=== PATIENT | male | born 1950 | race Caucasian/White ===

== ENCOUNTER 2017-02-28 13:47 | Observation (INO) | payer MEDICARE ==
--- NOTE | ~2017-02-28 | EKG ---
PATIENT: MAURA ADORNO UNIT #: [id number] Ventricular Rate: 64 BPM Atrial Rate: 64 BPM P-R Interval: 188 ms QRS Duration: 92 ms Q-T Interval: 418 ms QTC Calculation(Bezet): 431 ms P Chandler: 37 degrees Calculated R Chandler: 16 degrees Calculated T Chandler: 29 degrees Diagnosis Line: Normal sinus rhythm Diagnosis Line: Normal ECG Diagnosis Line: No previous ECGs available Diagnosis Line: Confirmed by BRYANT MACIAS MD ([id number]) on Diagnosis Line: 02/28/2017 10:23:46 PM INTERPRETING MD: SABINA
--- NOTE | ~2017-02-28 | OR ---
Unit #: [id number] #: [id number] Patient: MAURA ADORNO [id number] [address] [address] [id number] MR#: [id number] NAME: MAURA ADORNO ROOM: 562 Date of Procedure: 03/01/2017 Admission Date: 02/28/2017 Surgeon: Preet Earl M.D. : 1950 Attending Physician: Na Spence M.D. Primary Care Physician: Breanna Hartmann M.D. OPERATIVE REPORT PRIMARY CARE PHYSICIAN Breanna Hartmann M.D. PREOPERATIVE DIAGNOSES The patient has high-grade dysphagia to both solids as well as liquids for the past several days. He has lost about 20 pounds in the interim. PROCEDURES PERFORMED 1. Upper gastrointestinal endoscopy and foreign body disimpaction. 2. Upper gastrointestinal endoscopy and dilation. 3. Upper gastrointestinal endoscopy and biopsy. POSTOPERATIVE DIAGNOSES The patient had liquid food residue in the esophagus all the way up to the proximal esophagus. In the distal esophagus, a lot of solid food vegetative matter was present. The opening of the distal esophagus was like a pinhole marked with a tight stricture. The esophagus was quite dilated as a result of longstanding obstruction. After vigorous suction of the liquid contents, the distal esophagus was dilated using a 12 to 15 mm TTS balloon and the scope was then advanced into the gastric cavity. Stomach examination was normal. The patient did have evidence of mild duodenitis involving the duodenal bulb. A repeat dilation was done to dilate 12 to 15 mm. RECOMMENDATIONS The patient most likely has stricture in association with longstanding obstruction, overall currently may also have achalasia. We will see how he does with full liquid diet including shakes and protein supplements, and if he is able to maintain his weight, he will require a repeat dilation along with Botox injection in 4 to 6 weeks' time. This was communicated to his family. SEDATION USED MAC. DESCRIPTION OF PROCEDURE Following detailed explanation of the potential risks and complications of an upper endoscopy, namely perforation, bleeding, and complication related to sedation, the patient was brought to GI lab and laid in the left lateral decubitus position. Lubricated tip of the Olympus video upper endoscope was passed through the bite block into the proximal esophagus under direct vision. The entire esophageal mucosa was examined. The Unit #: [id number] #: [id number] Patient: MAURA ADORNO patient was noted to have lot of liquid residue in the entire esophagus all the way up to the proximal esophagus. This was suctioned. In the mid and distal esophagus, there was solid food residue present. The distal esophagus tapered to a narrow opening, which was impossible to pass with the shaft of the scope. This was negotiated with a TTS balloon to 12 mm, the scope could be advanced into the stomach. Mucosa of the fundus, body, and antrum was examined and appeared unremarkable. Pylorus was intubated with visualization of the duodenal bulb. The latter was noted to have focal patchy erosive duodenitis. Second and third part of duodenum were normal. Upon withdrawal and retroflexion, incisura, cardia, and greater curve was examined and a biopsy was obtained from the antrum for CLOtest. The scope was then withdrawn in the distal esophagus. The distal esophageal stricture was again dilated with 12 to 15 mm dilating balloon up to 15 mm. In addition, biopsies were obtained for histology from the strictured area. It is noteworthy the patient had considerably dilated esophagus indicating longstanding obstruction. Some of the solid food material was aspirated and some was passed through the esophagus into the stomach. The scope was then withdrawn all the way up to pharynx. No additional findings were noted. The patient tolerated the procedure without any postprocedure complications. Dictated by... James Ma/manuel TD: 03/01/2017 19:11 JOB #: [id number] Michelle May M.D. OPERATIVE REPORT Page 1 of 1 X Preet Earl MD X PROCEDURE OPERATIVE NOTE
--- NOTE | ~2017-02-28 | DS ---
Unit #: [id number] #: [id number] Patient: MAURA ADORNO [id number] [address] [address] [id number] I MR#: [id number] NAME: MAURA ADORNO ROOM: [facility] Age: 66 Sex: M Admission Date: 02/28/2017 : 1950 Discharge Date: 03/02/2017 Attending Physician: Na Spence M.D. Primary Care Physician: Breanna Hartmann M.D. DISCHARGE SUMMARY ADMISSION DIAGNOSIS Dysphagia. DISCHARGE DIAGNOSES 1. Dysphagia. 2. Distal esophageal stricture, status post dilatation. 3. Acute kidney injury, resolved. 4. Hypertension, controlled. 5. Hyperlipidemia. CONSULTANTS Dr. Preet Earl in GI consultation PROCEDURES PERFORMED The patient had an EGD done, which revealed distal esophageal stricture (1)____, which was evaluated. DIAGNOSTIC DATA LABORATORY: Creatinine 1.0, sodium 144, potassium 3.1. AST was 43, ALT was 63. White blood cell count 4.8, hemoglobin 13.9, platelet count 195. Urine culture did not reveal any growth. Blood culture did not reveal any growth. Troponin I was less than 0.03, 0.037. HOSPITAL COURSE The patient is a 66-year-old who was admitted to [facility] with dysphagia. Details are as per admission history and physical. The patient was seen by Dr. Preet Earl in consultation, who performed EGD which revealed esophageal stricture which was dilated. The patient was advised to have a liquid diet only and no solids until seen by Dr. Earl on an outpatient basis. Acute kidney injury, which responded well to IV fluids. The patient's creatinine is 1.0. Hypokalemia: Replaced the patient's potassium. The patient's urine culture is negative. DISCHARGE CONDITION Stable. ACTIVITY As tolerated. Unit #: [id number] #: [id number] Patient: MAURA ADORNO DISCHARGE MEDICATIONS 1. Lovastatin 40 mg p.o. daily. 2. Lisinopril 40 mg p.o. daily. 3. Protonix 40 mg p.o. daily. FOLLOWUP 1. The patient is advised to follow up with primary care physician in one week and have a CBC and CMP done for followup on potassium and LFTs. 2. The patient is advised to call primary care physician or go to the emergency room if his condition changes. 3. The patient is also advised to follow up with Dr. Preet Earl as recommended. The plan was discussed in detail with the patient and family and they showed complete understanding. Dictated by... James Nelson TD: 03/02/2017 11:07 JOB #: [id number] CC: James Ma M.D. DISCHARGE SUMMARY Page 1 of 1 X Na Spence MD X DISCHARGE SUMMARY
--- NOTE | ~2017-02-28 | CO ---
Unit #: [id number] #: [id number] Patient: MAURA LITTLEJOHN [id number] [address] [place], [place] [address] [id number] I MR#: [id number] NAME: MAURA LITTLEJOHN ROOM: 562 Age: 66 Sex: M Admission Date: 02/28/2017 : 1950 Attending Physician: Na Spence M.D. Primary Care Physician: Breanna Hartmann M.D. Consultation Date: 02/28/2017 CONSULTATION REPORT PRIMARY CARE PHYSICIAN Breanna Hartmann M.D. REASON FOR CONSULTATION Dysphagia to solids as well as liquids. HISTORY OF PRESENT ILLNESS Mr. Littlejohn is a very pleasant 66-year-old white gentleman. The patient was examined at the bedside. He had about 10 family members in the room at the time including his . For the past 3 to 4 days, he have total dysphagia to both solids as well as liquids and he says even if he takes a drink of water, it comes out. In fact, he is spitting a saliva indicated near total obstruction of the esophagus. The patient denies any history of postprandial retrosternal ascending heartburn preceding the symptoms. He stated that he had occasional dysphagia in the past, but not like this. In addition, he mentions almost 15 to 16 pounds of weight loss for the past 3 months, which is unintended. There is no history of overt GI bleed in the form of hematemesis, melena, or hematochezia. PAST MEDICAL HISTORY Significant for history of hypertension and hyperlipidemia, and he denies any abdominal surgeries. MEDICATIONS Include Zestril, Mevacor, and hydrochlorothiazide. The patient does not take any mybi-gst-[id number] NSAIDs. ALLERGIES The patient says if he takes ibuprofen, he gets swelling over his body and thus he is allergic to ibuprofen. SOCIAL HISTORY Works as a fork truck driver. Does not smoke. Drinks very occasionally. FAMILY HISTORY None of colon, pancreatic cancer, or liver disease. REVIEW OF SYSTEMS Detailed review of organ systems does not reveal any fever, chills, or rigors. There is history of weight loss mentioned above. There is history of cough and expectorations of mucoid material. No history of headache, seizures, chest pain, or syncope. No history of dysuria, hematuria, or pyuria. No history of focal seizures or extremity weakness. Rest of the review of organ systems is unremarkable. Unit #: [id number] #: [id number] Patient: MAURA LITTLEJOHN PHYSICAL EXAMINATION GENERAL: He is alert and oriented, and appears comfortable. VITAL SIGNS: Stable with a temperature of 98.4, pulse is 76 per minute and regular, respiratory rate is 18 per minute, and blood pressure is 146/80. HEENT: He has no pallor, icterus, lymphadenopathy, or peripheral edema. CARDIOVASCULAR: Reveals normal heart sounds. No murmurs on auscultation. LUNGS: Reveals normal breath sounds. Good air entry. ABDOMEN: Soft and nontender. Liver and spleen are not palpable. Bowel sounds normal. DIAGNOSTIC STUDIES LABORATORY RESULTS: Pending. CLINICAL IMPRESSION The patient with a new onset of dysphagia, significant weight loss. The differential diagnosis includes esophageal stricture, dysmotility, or esophageal malignancy. An upper endoscopy is indicated and be done tomorrow. The pros and cons of procedure, potential risks, and complications were discussed with the patient and he was reassured. Thank you very much for asking me to see this pleasant gentleman. I appreciate the consult. Dictated by... James Ma/manuel TD: 03/01/2017 02:31 JOB #: [id number] CC: James Mohan M.D. CONSULTATION REPORT Page 1 of 1 X Preet Earl MD X CONSULTATION REPORT
--- NOTE | ~2017-02-28 | HP ---
Unit #: [id number] #: [id number] Patient: MAURA ADORNO 828254 [facility] [address] [place], [place] [address] [id number] I MR#: [id number] NAME: MAURA ADORNO ROOM: 562 Age: 66 Sex: M Admission Date: 02/28/2017 : 1950 Attending Physician: Michelle May M.D. Primary Care Physician: Breanna Hartmann M.D. HISTORY AND PHYSICAL CHIEF COMPLAINT Vomiting. HISTORY OF PRESENT ILLNESS The patient is a 66-year-old male with past medical history of hypertension, hyperlipidemia, who presented to [facility] for evaluation of the above. The patient states that he has had about a year of intermittent difficulty swallowing. It has become acutely worse over the past 3 to 4 days. He states that he feels like both liquids and solids "get stuck" in his mid chest. He has actually had to carry a bottle with him in order to spit his own secretions. Otherwise, he has been vomiting. He states that he has lost at least 30 pounds over the past 6 months. He has never had endoscopy. In the emergency department, at [facility], a CT of the chest was done and showed moderate dilatation of the esophagus with air-fluid levels. Urinalysis showed findings concerning for urinary tract infection. Creatinine was 1.92. He was given a gram of Rocephin. He was transferred to [facility] for admission and further workup. PAST MEDICAL HISTORY 1. The patient denies any hospitalizations within the past 10 years. 2. Hypertension. 3. Hyperlipidemia. PAST SURGICAL HISTORY 1. Oral surgery. 2. 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 ALLERGIES 1. Ibuprofen. 2. Sulfamethoxazole. HOME MEDICATIONS 1. Hydrochlorothiazide 25 mg daily. 2. Lisinopril 40 mg daily. 3. Lovastatin 40 mg daily. SOCIAL HISTORY The patient lives with his . He drives a delivery truck. He denies tobacco use. He reports occasional alcohol use. Unit #: [id number] #: [id number] Patient: MAURA ADORNO FAMILY HISTORY Notable for his mother and father both having COPD. REVIEW OF SYSTEMS A complete review of systems is negative except as indicated in the HPI. PHYSICAL EXAMINATION VITAL SIGNS: Temperature 98, pulse 80, respirations 18, blood pressure 120/80, oxygen saturation 97% on room air. GENERAL: The patient is a very pleasant male who is awake and alert in no acute distress. HEENT: Head is atraumatic. Mucous membranes are moist. NECK: Supple. Trachea is midline. LUNGS: Clear to auscultation bilaterally with no increased work of breathing. HEART: Regular rate and rhythm. ABDOMEN: Soft, nontender. Bowel sounds present in all four quadrants. EXTREMITIES: Nontender with no pedal edema. NEUROLOGIC: Patient is awake and alert. He follows commands. PSYCHIATRIC: Mood and affect are normal. Patient is cooperative. SKIN OF EXAMINED AREAS: Warm and dry. DIAGNOSTIC STUDIES LABORATORY: Comprehensive metabolic panel notable for a sodium of 145, potassium 3.3, BUN 46, creatinine 1.92, total protein 8.9, total bilirubin 3, AST 76, ALT 83. Complete blood count is essentially normal. Urinalysis is nitrate positive with 30 protein, 100 glucose, trace ketones, 1+ bacteria, a few epithelial cells. IMAGING: CT of the chest showed esophageal dilatation with air-fluid levels. CARDIOVASCULAR: EKG. I was told was done and normal. I do not see that in the accompanying records. ASSESSMENT The patient is a 66-year-old male with: 1. Dysphagia for liquids and solids. This has been going on for about a year but worse over the past couple of days. The patient is currently having difficulty handling his secretions as he is having to spit into a bottle. He is not currently in any distress however. 2. Acute kidney injury. The patient's creatinine was 1.92 with no baseline for comparison. The patient is on lisinopril which could be contributing. 3. Urinary tract infection. The patient received Rocephin in the emergency department. 4. Hypertension. 5. Hyperlipidemia. 6. Weight loss. The patient has lost over 30 pounds in the past 6 months. PLAN 1. Admit for observation to intermediate level. 2. N.p.o. 3. Normal saline at 125 mL per hour. 4. Consult Dr. Earl regarding dysphagia. 5. Blood cultures x2. 6. Urine culture and sensitivity on urine in the lab. Unit #: [id number] #: [id number] Patient: MAURA ADORNO 7. Rocephin 1 gram IV daily. 8. EKG and cardiac enzymes. 9. Check TSH. 10. Check magnesium level. 11. Strict I's and O's. 12. P.r.n. Zofran. 13. Check CPK. 14. Hold nephrotoxic medications. 15. Repeat labs in the morning. 16. SCDs for DVT prophylaxis. 17. Additional workup and consultants based on above. Dictated by James Mohan/chandan TD: 02/28/2017 17:54 JOB #: [id number] HISTORY AND PHYSICAL Page 1 of 1 X Michelle May MD X HISTORY AND PHYSICAL
[2017-02-28] MEDS ORDERED: LISINOPRIL PO (15:02)
[2017-02-28] MEDS ORDERED: MEVACOR PO (15:03)
[2017-02-28] MEDS ORDERED: HYDROCHLOROTHIA25 MG PO (15:04)
[2017-02-28 18:23] LABS: CALCIUM SERUM 8.8 mg/dL (8.4-10.2); CREATININE SERUM 1.5 mg/dL (0.6-1.4); GLOM FILT RATE Estimated 48.2 mL/min (>60); MAGNESIUM 2.1 mg/dL (1.6-3.0); POTASSIUM 3.7 mmol/L (3.5-5.1)
[2017-02-28 18:42] LABS: %MB 2.6 % (0.0-4.0); MB 2.2 ng/ml
[2017-03-01 00:33] LABS: %MB 2.7 % (0.0-4.0); MB 2.4 ng/ml
[2017-03-01 07:44] LABS: HEMATOCRIT 42.2 % (38.0-50.0); MEAN CELL VOLUME 88.8 FL (83-96); MEAN CORPUSCULAR HEMOGLOBIN 29.4 PG (28-34); MEAN CORPUSCULAR HGB CONC 33.1 g/dL (30-36); MEAN PLATELET VOLUME 8.6 FL (6.5-11.5); RED BLOOD COUNT 4.75 X10e (3.90-5.60); RED CELL DISTRIBUTION WIDTH 14.1 % (11.0-15.5); WHITE BLOOD COUNT 5.3 X10e3 (4.0-10.5)
[2017-03-01 07:51] LABS: INR 1.1; PROTHROMBIN TIME (PATIENT) 11.3 SECONDS (9.6-11.5)
[2017-03-01 08:43] LABS: ALBUMIN SERUM 3.5 g/dL (3.5-5.0); BILIRUBIN,TOTAL 2.6 mg/dL (0.2-2.0); BUN/CREATININE RATIO 29.23; CALCIUM SERUM 8.7 mg/dL (8.4-10.2); CREATININE SERUM 1.3 mg/dL (0.6-1.4); GLOM FILT RATE Estimated 57.3 mL/min (>60); PHOSPHOROUS 2.8 mg/dL (2.5-4.6); PROTEIN TOTAL SERUM 7.2 g/dL (6.0-8.3)
[2017-03-02 05:24] LABS: HEMATOCRIT 42.1 % (38.0-50.0); HEMOGLOBIN 13.9 gm/dL (13.0-16.0); MEAN CELL VOLUME 88.3 FL (83-96); MEAN CORPUSCULAR HEMOGLOBIN 29.2 PG (28-34); MEAN CORPUSCULAR HGB CONC 33.1 g/dL (30-36); MEAN PLATELET VOLUME 8.6 FL (6.5-11.5); RED BLOOD COUNT 4.76 X10e (3.90-5.60); RED CELL DISTRIBUTION WIDTH 13.8 % (11.0-15.5); WHITE BLOOD COUNT 4.8 X10e3 (4.0-10.5)
[2017-03-02 06:16] LABS: CALCIUM SERUM 8.6 mg/dL (8.4-10.2); GLOM FILT RATE Estimated 78.6 mL/min (>60); MAGNESIUM 1.9 mg/dL (1.6-3.0); POTASSIUM 3.1 mmol/L (3.5-5.1)
[2017-03-02] MEDS ORDERED: PRILOSEC PO (11:53)
[2017-05-05] MEDS ORDERED: OMEPRAZOLE40 M1 PO (15:05)
[2017-05-05] MEDS ORDERED: CARAFATE PO (15:05)
[2017-05-08] MEDS ORDERED: NO MEDICATIONS (07:22)
[2017-06-06] MEDS ORDERED: CLARITIN10 M3 PO (13:20)
[2017-06-19] MEDS ORDERED: NO MEDICATIONS (12:43)
== END 2017-03-02 14:27 | disposition home or self-care (01) ==
LOC: UNDOADMOB 15:29 → CEDOF 15:29 → C5B 15:29 → CEDOF 16:24 → C5B 16:24 → CEDOF 16:35 → C5B 16:35
PROVIDERS: Family Medicine; Internal Medicine; Internal Medicine Gastroenterology
DX: K22.2 Esophageal obstruction (principal); T18.128A Food in esophagus causing other injury, initial encounter; K29.80 Duodenitis without bleeding; N17.9 Acute kidney failure, unspecified; I10 Essential (primary) hypertension; E78.5 Hyperlipidemia, unspecified; N39.0 Urinary tract infection, site not specified; R63.4 Abnormal weight loss; Z88.2 Allergy status to sulfonamides; Z88.6 Allergy status to analgesic agent
CPT/HCPCS: 80048; 80053; 82550; 82553; 83735; 84100; 84132; 84443; 84484; 85027; 85610; 87040; 87077; 87086; 88305; 93005; 96374; 96375; 96376; G0378; J0696; J3475

== ENCOUNTER 2017-04-06 15:58 | Inpatient (IN) | payer MEDICARE ==
[~2017-04-06] VITALS: Ht 188 cm; Wt 82.8 kg
--- NOTE | ~2017-04-06 | CO ---
Unit #: [id number] #: [id number] Patient: GLENN ADORNO [id number] [address] [place], [place] [address] [id number] I MR#: [id number] NAME: GLENN ADORNO ROOM: 328 Age: 66 Sex: M Admission Date: 04/06/2017 : 1950 Attending Physician: Glenn Weiss M.D. Primary Care Physician: Breanna Hartmann M.D. CONSULTATION REPORT REASON FOR CONSULTATION Dysphagia HISTORY OF THE PRESENT ILLNESS This is a 66-year-old gentleman who had severe dysphagia for solids and liquids. He has had about a 50-pound weight loss overall. The underwent prior upper endoscopy with dilatation last month by Dr. Ralph and there was suggested repeat dilatation in four to six weeks with a Botox injection. He did have some biopsies done at that time that did not show any cancer. MEDICATIONS 1. Zestril 2. Mevacor 3. Prilosec ALLERGIES Sulfa SOCIAL HISTORY He uses alcohol occasionally. Denies any tobacco use. REVIEW OF SYSTEMS Negative for jaundice. No fevers and he has had no change in bowel habits. FAMILY HISTORY Noncontributory. PHYSICAL EXAMINATION GENERAL APPEARANCE: He is in no acute distress. VITAL SIGNS: Temperature 98.2. Heart rate 78. Respiratory rate 15. Blood pressure 131/74. HEENT: Pupils are equal and reactive to light and accommodation and his extraocular muscles are intact. NECK: Without masses or bruits. LUNGS: Good breath sounds bilaterally with equal air exchange. CARDIAC: Regular rate and rhythm without murmur. ABDOMEN: Soft, nontender, nondistended with no organomegaly. EXTREMITIES: Without edema or cyanosis. NEUROLOGIC: He is alert and oriented. There are no focal deficits. DIAGNOSTIC STUDIES LABORATORY: Bilirubin is elevated at 2.8, but was 2.6 on his last Unit #: [id number] #: [id number] Patient: GLENN ADORNO admission. His indirect component is 1.8. AST was 155, ALT 237, alkaline phosphatase 98, potassium 3.1. White count 8000, hemoglobin 16. IMPRESSION This is a gentleman who has an esophageal stricture. He is going to undergo repeat upper endoscopy today with dilatation. He understands risks and benefits and the possibility of perforation. He understands and wishes to proceed. He also may need to have thoracic consultation. Dictated by... Francois Jarvis III, M.D. VCL/anderson TD: 04/07/2017 15:26 JOB #: [id number] CONSULTATION REPORT Page 1 of 1 X Francois Jarvis III, MD X CONSULTATION REPORT
--- NOTE | ~2017-04-06 | CR97 ---
[facility] A Service of [facility] & [facility] RADIOLOGY TEXT RESULTS PATIENT: GLENN ADORNO LOCATION: [facility] 328- : [birth year] UNIT #: [id number] AGE: [address]: Glenn Weiss MD SEX: M ORDER DR: [id number] [facility] [address] [place], [place] [address] [id number] I MR#: [id number] Acc #: [id number] NAME: GLENN ADORNO : 1950 SEX: M STUDY DATE/TIME: 04/07/2017 10:26 UNIT: [address] ROOM: [facility] STUDY DESCRIPTION: CR Esophagram Attending Physician: Glenn Weiss M.D. Ordering Physician: Rai Garcia Jr., M.D. Primary Care Physician: Breanna Hartmann M.D. MEDICAL IMAGING REPORT This report is preliminary unless electronic signature is present EXAM Gastrografin esophagram, 04/07/2017 HISTORY Dysphagia. Difficulty swallowing for 1 month. Esophageal stricture was dilated today with EGD. Gastrografin esophagram was requested to evaluate for leak. FINDINGS Fluoroscopic and radiographic evaluation of the esophagus with attention to the oropharynx was performed using Gastrografin. There is normal peristaltic activity. There is a marked stricture located in the distal esophagus just above the gastroesophageal junction. No contrast was seen to extend across the stricture into the stomach. Contrast pooled within the distal esophagus. There is no evidence of contrast leak. Findings were called to Dr. Garcia at 10:30 a.m. on 04/07/2017. Patient was returned to his room in the upright position and instructed to remain in the upright position. Sixteen fluoroscopic spot film radiographs of the esophagus were obtained and 1.2 minutes of fluoroscopy time was utilized. IMPRESSION Abnormal examination demonstrating extremely tight stricture involving the distal esophagus just above the gastroesophageal junction. No contrast was seen to pass across the stricture into the stomach and contrast remained pooled in the distal esophagus throughout the examination. However there was no evidence of contrast leak from the esophagus. STAT * RESULT Dictated by... Colton Celeste M.D. [facility] A Service of [facility] & [facility] RADIOLOGY TEXT RESULTS PATIENT: GLENN ADORNO LOCATION: [place] [address] : [birth year] UNIT #: [id number] AGE: [address]: Glenn Weiss MD SEX: M ORDER DR: THIS IS AN ELECTRONICALLY VERIFIED REPORT Colton Celeste M.D. at 04/07/2017 5:05 PM REAGAN/amy TD: 04/07/2017 11:32 JOB #: [id number] MEDICAL IMAGING REPORT Page 1 of 1 COPY
--- NOTE | ~2017-04-06 | HP ---
Unit #: [id number] #: [id number] Patient: GLENN ADORNO [address] [address] [id number] I MR#: [id number] NAME: GLENN ADORNO ROOM: 29657 Age: 66 Sex: M Admission Date: 04/06/2017 : 1950 Attending Physician: Glenn Weiss M.D. Primary Care Physician: Breanna Hartmann M.D. HISTORY AND PHYSICAL HISTORY OF PRESENT ILLNESS The patient is a 66-year-old man who was recently admitted on February 28, 2017, for symptoms of dysphagia to both solids and liquids. The patient underwent endoscopy with dilatation along with foreign body disimpaction on March 01, 2017, with the plan for followup after the endoscopy in four to six weeks. The patient was discharged on a liquid diet and was doing well until about two days ago when he started having difficulty with swallowing liquids again, and subsequently the dysphagia progressed where patient was unable to keep any liquids down. PAST MEDICAL HISTORY 1. Hypertension. 2. Hyperlipidemia. PAST SURGICAL HISTORY 1. 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 2. Endoscopic dilatation of esophagus on March 01, 2017. ALLERGIES Ibuprofen and sulfamethoxazole. HOME MEDICATIONS Protonix 40 mg daily. SOCIAL HISTORY Denies tobacco use. Reports occasional alcohol use. FAMILY HISTORY Notable for both his mother and father having COPD. REVIEW OF SYSTEMS Complete review of systems is negative except as indicated in the History of Present Illness. PHYSICAL EXAMINATION GENERAL: A middle-aged appearing man, awake and alert. HEENT: Oropharynx is dry. NECK: Supple. Trachea midline. LUNGS: Clear to auscultation bilaterally. HEART: Regular rate and rhythm. No murmur. ABDOMEN: Soft. Bowel sounds active. EXTREMITIES: No edema, no cyanosis. NEUROLOGIC: No focal deficits. Unit #: [id number] #: [id number] Patient: GLENN ADORNO DIAGNOSTIC STUDIES LABORATORY: Abnormal liver enzymes: Total bilirubin 2.8, AST 155, ALT 237, and alkaline phosphatase 98. Abnormal renal function: BUN 33 and creatinine 1.8. ASSESSMENT AND PLAN 1. Recurrence of esophageal stricture, achalasia. Keep patient nothing by mouth. IV fluids for hydration. Consult Gastroenterology, Dr. Earl. 2. Abnormal liver function tests. Ordering hepatitis panel. Follow up liver function tests. Gastroenterology consultation with Dr. Earl. 1. Dictated by Nuno Polk M.D. AM/ifrah TD: 04/06/2017 20:46 JOB #: [id number] HISTORY AND PHYSICAL Page 1 of 1 X X HISTORY AND PHYSICAL
--- NOTE | ~2017-04-06 | A ---
[facility] Nutrition Therapy DATE: 04/07/17 Patient: MAURA ADORNO Physician: LELAND Address: [address] Room/Bed: [address] [place] [address], Zip: [place] [address] Admit Date: 04/06/17 Date of : [birth year] Height: 6 2 Weight: 179 81.6 NUTRITIONAL ASSESSMENT: REASON: 6 NUTRITION RISK PT RE: WEIGHT LOSS + POOR PO INTAKE PT IS 66 Y.O. MALE ADMITTED FOR ESOPHAGEAL STRICTURE PMH: HTN, HLD Anthropometrics: 6'2", WT: 180# (82 KG), BMI: 23.1 Labs: BUN: 33, CREAT: 1.8, AST: 155, ALT: 237, K+:3.1, GFR: 38.6 Meds: NACL, PROTONIX, D5% I/O & Bowel function: -/1 Skin Integrity: NO KNOWN SKIN ISSUES Estimated Nutrition Needs: INCREASED NUTRIENT NEEDS 2' WEIGHT LOSS NOTED, DECREASED PO INTAKE NOTED Assessment: CHART REVIEWED AND EVENTS NOTED. PT SEEN FOR 6 NUTRITION RISK PT RE: WEIGHT LOSS + POOR PO INTAKE. PT REPORTS DECREASED PO INTAKE 2' DYSPHAGIA OF BOTH SOLIDS AND LIQUIDS NOTED PAST 8-10 WEEKS. PT AND ADDS THAT PT HAS HAD INTERMITTENT DIFFICULTY SWALLOWING PAST YEAR. PT ABLE TO TOLERATE FULL LIQUID DIET, PUDDING, ICE CREAM, BOOST AND ENSURE AND OTHER SHAKES. PT AND REPORT PT HAS LOST ~28# PAST 2 MONTHS/13% SEVERE WEIGHT LOSS NOTED. OF NOTE, PT WAS AD[facility]ITT[facility], 2017 WITH SYMPTOMS OF DYSPHAGIA TO BOTH SOLIDS AND LIQUIDS AND UNDERWENT AN ENDOSCOPIC DILATION OF THE ESOPHAGUS. PT CURRENTLY ON FULL LIQUID DIET, REQUESTING ENSURE SHAKES AND MAGIC CUPS HERE, RD WILL ORDER. RD PROVIDED WRITTEN AND VERBAL SOFT FOODS DIET EDUCATION. PT AND REPORTED NO DIET QUESTIONS AT THIS TIME. RD TO FOLLOW. Dx: INADEQUATE PROTEIN-ENERGY INTAKE R/T DYSPHAGIA NOTED AEB PT AND REPORT ABOVE, 28#/13% SEVERE WEIGHT LOSS IN PAST 2 MONTHS, 6 NUTRITION RISK POINT SCORE. Intervention: 1. FULL LIQUID DIET 2. ENSURE SHAKES TID + MAGIC CUP TID 3. DIET EDUCATION Monitoring, Evaluation and Goals: 1. ORAL INTAKE; ADVANCE DIET & CONSUME/TOLERATE >50% OF MEALS AND SUPPLEMENTS W/NO C/O N/V/D 2. WEIGHTS; PREVENT FURTHER UNINTENTIONAL WEIGHT LOSS [facility] Nutrition Therapy DATE: 04/07/17 Patient: MAURA ADORNO Physician: LELAND Address: [address] Room/Bed: [address] [place] [address], Zip: [place] [address] Admit Date: 04/06/17 Date of : [birth year] Height: 6 2 Weight: 179 81.6 3. LABS; WNL 4. GI; PROMOTE REGULAR GI FUNCTION MONITOR: -PO INTAKE/APPETITE/DIET ADVANCEMENT -SUPPLEMENT INTAKE -WEIGHTS Recommendations: 1. PLEASE ORDER MAURICIO ENSURE ENLIVE SHAKES TID W/MEALS + MAURICIO MAGIC CUP TID W/MEALS 2. ONCE MEDICALLY FEASIBLE, ADVANCE DIET TOLERATED TO HEALTH HEART + MECHANICAL SOFT 2' CURRENT CONDITION 3. ADD 6 SMALL MEALS TO CURRENT DIET ORDER TO BETTER FACILITATE PO INTAKE 4. ENCOURAGE SLOW GRADUAL PO INTAKE. ENCOURAGE ADEQUATE PO INTAKE 2' SEVERE WEIGHT LOSS NOTED 5. IF PT UNABLE TO TOLERATE PO INTAKE, CONSULT RD FOR RECOMMENDATIONS RD WILL F/U PER PROTOCOL PT IS MOD/SEVERELY COMPROMISED Respectfully, RIGO UNDERWOOD MS, RD, LD Food and Nutritional Services [facility] cc: client file
--- NOTE | ~2017-04-06 | MAL ---
[facility] Nutrition Therapy DATE: 04/08/17 Patient: MAURA ADORNO Physician: MORCAR Address: [address] Room/Bed: [address] [place] [address], Zip: [place] [address] Admit Date: 04/06/17 Date of : [birth year] Height: 6 2 Weight: 182 82.8 PHYSICAL MALNUTRITION ASSESSMENT Energy Intake, Chronic Illness Moderately reduced: <75% needs for >/=1 month Severely reduced: </=50% needs for >/=1 month Energy Intake Comment: PT REPORTS DECREASED PO INTAKE AND APETITE 2' DYPSPHAGIA NOTED PAST 8-10 WEEKS. PT ADDS "INTERMITTENT DYSPHAGIA PAST YEAR". Weight Loss, Acute Injury/Illness Severe: >7.5% past 3 months Weight Loss, Comment: PT REPORTS LOSING ~28# IN PAST 2-3 MONTHS/~13% SEVERE WEIGHT LOSS NOTED Physical Findings Body Fat and Muscle Mass Moderate: (suggested) some loss of subqutaneous fat and/or muscle mass Physical Findings Functional Capacity Moderate: (suggested) reduced functional capacity capacity Physical Findings Comment: PER RD OBSERVATION, SLIGHT TEMPORAL DEPRESSION OF MUSCLE OBSERVED, SOME PROTRUSION OF SHOULDER, CLAVICLE AND SCAPULA NOTED. LOSS OF MUSCLE DEFINITION IN BICEPS/TRICEPS AND CALVES. ALSO, SOME DARK CIRCLES OBSERVED AROUND AND UNDER EYES, SOME APPARENT RIBS, DRY MOUTH AND NAILS OBSERVED. Dietitian Malnutrition Assessment Score: MOD/SEVERELY Malnutrition Etiology Summary: Acute injury/illness moderate Acute injury/illness severe Chronic illness moderate Chronic illness severe Malnutrition Survey Comment: SEE RD ASSESSMENT ON 04/07/17 Respectfully, RIGO UNDERWOOD MS, RD, LD Food and Nutritional Services [facility] Nutrition Therapy DATE: 04/08/17 Patient: MAURA ADORNO Physician: LELAND Address: [address] Room/Bed: [address] [place] [address], Zip: [place] [address] Admit Date: 04/06/17 Date of : [birth year] Height: 6 2 Weight: 182 82.8 [facility] cc: client file
--- NOTE | ~2017-04-06 | OR ---
Unit #: [id number] #: [id number] Patient: MAURA ADORNO [id number] [address] [place], [place] [address] [id number] I MR#: [id number] NAME: MAURA ADORNO ROOM: 328 Date of Procedure: 04/07/2017 Admission Date: 04/06/2017 Surgeon: Rai Garcia Jr., M.D. : 1950 Attending Physician: Nuno Feldman Primary Care Physician: Breanna Hartmann M.D. OPERATIVE REPORT INDICATIONS FOR PROCEDURE The patient is a 66-year-old white male with a known past history of esophageal stenosis. A month ago or so, he had upper endoscopy with biopsies and dilatation from 12 to [address] Earl and now he is having more progressive dysphagia and the other day he had possibly a foreign body of the esophagus, but that is now resolved. He is brought in this time for upper endoscopy with esophageal dilatation again and biopsies. He understands the procedure including risks, including that of perforation and bleeding, and consents. PREOPERATIVE DIAGNOSIS Recurrent esophageal stenosis. POSTOPERATIVE DIAGNOSES Recurrent esophageal stenosis noting high-grade stenosis of the distal esophagus, as well as some mild duodenitis. ANESTHESIA MAC anesthesia. PROCEDURE PERFORMED Flexible fiberoptic esophagogastroduodenoscopy with biopsies of the distal esophagus and balloon dilatation from 12 to 15 mm. DESCRIPTION OF PROCEDURE The patient was positioned in Masters position with left side down and after being given MAC anesthesia, the Olympus XQ scope was passed through the proximal esophagus. The entire esophagus was examined and proximal two-thirds contained some liquid which was then evacuated, but no evidence of any significant abnormalities. In the area of the distal esophagus, there was again high-grade stenosis as noted before a month ago with no obvious cancer. Scopes could not be advanced through the GE junction, therefore 12 to 15 mm balloon dilator was then placed in the distal esophagus under direct visualization and used to dilate the esophagus from 12 to 14 mm. The scope was then advanced into the stomach and down to the distal stomach and retroflexed back up to the area of the cardia. There was no hiatal hernia present. The stomach distended well without evidence of rigidity. No evidence of any gastric ulcer disease. The scope was advanced down the prepyloric region through the pylorus and the duodenal bulb, where there was some mild duodenitis but no evidence of any ulcer disease. The scope was advanced down to the second portion of the duodenum which appeared normal. The ampulla appeared normal. The scope Unit #: [id number] #: [id number] Patient: MAURA ADORNO was then brought up in the area of the stomach and 12 to 15 mm balloon dilator was then placed in the distal esophagus and slowly used to dilate the esophagus from 12 to 14 mm. After this was complete, the balloon was deflated and the area checked. There was no evidence of any perforation or significant tears or bleeding. Several biopsies were taken from this area without significant bleeding. The scope could be advanced through this area without significant resistance. The scope was then slowly removed. The patient tolerated the procedure well and discharged back to floor in satisfactory condition. Dictated by... Rai Garcia Jr., M.James CAMERON/manuel TD: 04/08/2017 02:18 JOB #: [id number] OPERATIVE REPORT Page 1 of 1 X Rai Garcia MD X PROCEDURE OPERATIVE NOTE
[~2017-04-06 15:58] MED LIST: HYDROCHLOROTHIA25 MG PO; LISINOPRIL PO; MEVACOR PO; PRILOSEC PO
[2017-04-06 17:49] LABS: BASOPHIL# 0.1 X10e3 (0-0.3); BASOPHIL% 0.6 % (0-2.5); EOSINOPHIL# 0.1 X10e3 (0-0.7); LYMPHOCYTE# 1.4 X10e3 (1.0-3.5); LYMPHOCYTE% 17.3 % (17.0-45.0); MEAN CELL VOLUME 86.9 FL (83-96); MEAN CORPUSCULAR HGB CONC 33.4 g/dL (30-36); MEAN PLATELET VOLUME 9.2 FL (6.5-11.5); MONOCYTE# 0.6 X10e3 (0-1.0); MONOCYTE% 7.4 % (3.0-12.0); NEUTROPHIL# 6.2 X10e3 (1.5-7.1); NEUTROPHIL% 73.7 % (40-75); PLATELET COUNT 240 X10e3 (140-420); RED BLOOD COUNT 5.52 X10e (3.90-5.60); RED CELL DISTRIBUTION WIDTH 14.4 % (11.0-15.5); WHITE BLOOD COUNT 8.4 X10e3 (4.0-10.5)
[2017-04-06 17:59] LABS: DIFF IND NO
[2017-04-06 18:23] LABS: ALBUMIN SERUM 4.2 g/dL (3.5-5.0); BILIRUBIN,INDIRECT 1.8 mg/dL (0.0-0.9); BILIRUBIN,TOTAL 2.8 mg/dL (0.2-2.0); BUN/CREATININE RATIO 18.33; CALCIUM SERUM 9.4 mg/dL (8.4-10.2); CREATININE SERUM 1.8 mg/dL (0.6-1.4); GLOM FILT RATE Estimated 38.6 mL/min (>60); POTASSIUM 3.1 mmol/L (3.5-5.1); PROTEIN TOTAL SERUM 8.3 g/dL (6.0-8.3)
[2017-04-08 14:42] LABS: BUN/CREATININE RATIO 18.18; CALCIUM SERUM 8.4 mg/dL (8.4-10.2); CREATININE SERUM 1.1 mg/dL (0.6-1.4); GLOM FILT RATE Estimated 70.1 mL/min (>60); POTASSIUM 3.7 mmol/L (3.5-5.1)
[2017-04-08] MEDS ORDERED: CARAFATE1 GM PO (20:18)
[2017-04-11 07:15] LABS: HA AB IGM (HEPPAN) Nonreactive (()); HB CORE AB IGM (HEPPAN) Nonreactive (Nonreactive); HB S AG (HEPPAN) Nonreactive (Nonreactive); HEP C AB (HEPPAN) Nonreactive (Nonreactive); HEP C AB SIGNAL TO CUTOFF 0.02 ratio (<1.00)
[2017-05-05] MEDS ORDERED: CARAFATE PO (15:05)
[2017-05-05] MEDS ORDERED: OMEPRAZOLE40 M1 PO (15:05)
[2017-05-08] MEDS ORDERED: NO MEDICATIONS (07:22)
[2017-06-06] MEDS ORDERED: CLARITIN10 M3 PO (13:20)
[2017-06-19] MEDS ORDERED: NO MEDICATIONS (12:43)
== END 2017-04-08 19:30 | disposition home or self-care (01) | DRG 392 ==
LOC: CED 15:58 → CEDOF 20:14 → CED 20:14 → CEDOF 21:38 → C3A PCU 21:38
PROVIDERS: Emergency Medicine; Internal Medicine; Surgery
PROC: 0DB58ZX Excision of Esophagus, Via Natural or Artificial Opening Endoscopic, Diagnostic (ICD-10-PCS; principal; 2017-04-07 08:43)
PROC: 0D758ZZ Dilation of Esophagus, Via Natural or Artificial Opening Endoscopic (ICD-10-PCS; 2017-04-07 08:43)
DX: K22.2 Esophageal obstruction (principal); N17.9 Acute kidney failure, unspecified; R13.10 Dysphagia, unspecified; K22.0 Achalasia of cardia; R94.5 Abnormal results of liver function studies; I10 Essential (primary) hypertension; E78.5 Hyperlipidemia, unspecified; Z89.029 Acquired absence of unspecified finger(s); Z88.2 Allergy status to sulfonamides; Z88.6 Allergy status to analgesic agent; R63.4 Abnormal weight loss; Z68.23 Body mass index [BMI] 23.0-23.9, adult; E86.0 Dehydration; Z83.6 Family history of other diseases of the respiratory system; K29.80 Duodenitis without bleeding
CPT/HCPCS: 36415; 74220; 80048; 80074; 80076; 82378; 85025; 88305; 96361; 96374; 99284; C9113

== ENCOUNTER → 2017-05-08 | Day surgery (SDC) | payer MEDICARE ==
[~2017-05-08] MED LIST changes: +CARAFATE PO; +CARAFATE1 GM PO; +CLARITIN10 M3 PO; +NO MEDICATIONS; +OMEPRAZOLE40 M1 PO
--- NOTE | ~2017-05-08 | CR97 ---
[facility] A Service of [facility] & [facility] RADIOLOGY TEXT RESULTS PATIENT: MAURA ADORNO LOCATION: [facility] : 52 UNIT #: [id number] AGE: [address]: Rai Garcia MD SEX: M ORDER DR: [id number] [facility] [address] [place], [place] [address] [id number] O MR#: [id number] Acc #: [id number] NAME: MAURA ADORNO : 1950 SEX: M STUDY DATE/TIME: 05/08/2017 8:53 UNIT: [facility] ROOM: STUDY DESCRIPTION: CR Esophagram Attending Physician: Rai Garcia Jr., M.D. Ordering Physician: Rai Garcia Jr., M.D. Primary Care Physician: Breanna Hartmann M.D. MEDICAL IMAGING REPORT This report is preliminary unless electronic signature is present STUDY Esophagram 05/08/2017 HISTORY Status post esophageal dilatation. PROCEDURE Study performed with both Gastrografin and barium. Total fluoro time 3.7 minutes with 19 spot images. FINDINGS Still tight stenosis at the gastroesophageal junction, but a small amount of both Hypaque and barium passed through without evidence of leak. Esophagus is dilated and relatively atonic. IMPRESSION Atonic, dilated esophagus, limited flow through distal esophageal stricture, but no convincing evidence of leak with either barium or Hypaque. Dictated by... Booker Mcdaniel M.D. THIS IS AN ELECTRONICALLY VERIFIED REPORT Booker Mcdaniel M.D. at 05/12/2017 4:54 PM TEV/psc TD: 05/09/2017 03:35 JOB #: [id number] MEDICAL IMAGING REPORT Page 1 of 1 COPY
--- NOTE | ~2017-05-08 | OR ---
Unit #: [id number] #: [id number] Patient: MAURA ADORNO [id number] [address] [place], [place] [address] [id number] O MR#: [id number] NAME: MAURA ADORNO ROOM: Date of Procedure: 05/08/2017 Admission Date: 05/08/2017 Surgeon: Rai Garcia Jr., M.D. : 1950 Attending Physician: Rai Garcia Jr., M.D. Primary Care Physician: Breanna Hartmann M.D. OPERATIVE REPORT INDICATIONS FOR PROCEDURE The patient is a 66-year-old white male with a known past history for esophageal stenosis. He was dilated approximately a month ago and continues to have dysphagia. He was dilated to 15 mm last time. It was planned to dilate him possibly up to 18 mm on this visit. He understands the procedure including the risks, including that of esophageal perforation, bleeding, and consents. PREOPERATIVE DIAGNOSIS High-grade stenosis of the distal esophagus. POSTOPERATIVE DIAGNOSIS High-grade stenosis of the distal esophagus, noting recurrent stenosis. ANESTHESIA MAC anesthesia PROCEDURE PERFORMED Flexible fiberoptic esophagogastroduodenoscopy with a balloon dilatation using a 15 to 18 mm up to 17 mm. DESCRIPTION OF PROCEDURE The patient was positioned in Masters position with left side down. After being given MAC anesthesia, the Olympus XQ scope was passed through the proximal esophagus. The entire esophagus was examined. There was some dilatation of the esophagus and at the GE junction, again there was noted high-grade stenosis. The scope could not be passed through this area and a 15 to 18 mm balloon dilator was then placed through the small opening into the stomach, brought up in the distal esophagus and slowly the esophagus was dilated from 15 to 16 to 17 mm. There was good dilatation noted, but still some snugness with pulling the balloon through at 17 mm. There was no evidence of any tears, perforation, or significant bleeding. It was felt that the dilatation be stopped at this point. Plan will be to get a Gastrografin swallow to make sure there was no perforation which was not noted. The scope was removed. The patient tolerated the procedure well and discharged in satisfactory condition. Dictated by... Rai Garcia Jr., M.D. JMB/manuel Unit #: [id number] #: [id number] Patient: MAURA ADORNO TD: 05/08/2017 11:02 JOB #: [id number] OPERATIVE REPORT Page 1 of 1 X Rai Garcia MD PROCEDURE OPERATIVE NOTE
== END | disposition home or self-care (01) ==
LOC: COPS 05:49
DX: K22.2 Esophageal obstruction (principal); K21.9 Gastro-esophageal reflux disease without esophagitis; Z88.2 Allergy status to sulfonamides; Z79.899 Other long term (current) drug therapy
CPT/HCPCS: 74220

== ENCOUNTER → 2017-06-06 | Day surgery (SDC) | payer MEDICARE ==
--- NOTE | ~2017-06-06 | OR ---
Unit #: [id number] #: [id number] Patient: MAURA ADORNO [id number] [address] [place], [place] [address] [id number] O MR#: [id number] NAME: MAURA ADORNO ROOM: Date of Procedure: 06/06/2017 Admission Date: 06/06/2017 Surgeon: Rai Garcia Jr., M.D. : 1950 Attending Physician: Rai Garcia Jr., M.D. Primary Care Physician: Breanna Hartmann M.D. OPERATIVE REPORT INDICATIONS FOR OPERATION The patient is a 66-year-old white male with a known past history for severe esophageal stenosis felt to be related to reflux with 2 sets of biopsies being negative for cancer. He was dilated approximately a month ago with an EGD scope and was felt he needed an additional biopsy, even though clinically, he is doing much better with swallowing according to him. He is brought back in this time for EGD with dilatation. He understands the procedure including the risk of perforation as well as bleeding and consents. PREOPERATIVE DIAGNOSES Recurrent esophageal stenosis with severe dysphagia. POSTOPERATIVE DIAGNOSES Recurrent esophageal stenosis with severe dysphagia, noting again marked stenosis of the distal esophagus near the GE junction and hypertrophic tissue, but no obvious cancer. ANESTHESIA MAC anesthesia. PROCEDURE PERFORMED Flexible fiberoptic esophagogastroduodenoscopy with dilatation of the distal esophagus from 15 to 16.5 to 18 mm without evidence of any complications. Also, biopsies were taken from the GE junction. DESCRIPTION OF PROCEDURE The patient was positioned in Masters position with left side down. After being given MAC anesthesia, Olympus XQ scope was passed through the proximal esophagus. Entire esophagus was examined. In the proximal esophagus, there was some liquid present, which was suctioned and removed and the scope was then advanced down the distal esophagus, where there was significant stenosis again. Then at this point, it was felt that in order to get the scope through the GE junction, dilatation be performed as before. A 15 to 18 mm balloon dilator was then placed into the stomach and brought up in the distal esophagus through the opening and then inflated slowly from 15 to 16.5 to 18 mm. There was good dilatation of the area with slight tear of the mucosa, but no evidence of any full-thickness tear of the wall of the esophagus and no evidence of any perforation or significant bleeding. The scope was advanced through this area and down to the cardia, fundic, and antral region of the stomach and on into the duodenum. It was brought back up to the area of the fundus Unit #: [id number] #: [id number] Patient: MAURA ADORNO and then retroflexed up to the area of the cardia. There was some hypertrophic tissue in the area, which was again biopsied to rule out occult malignancy. The scope was slowly removed. The patient tolerated the procedure well and discharged in satisfactory condition. Dictated by... Rai Garcia Jr., M.D. JMB/manuel TD: 06/06/2017 15:49 JOB #: [id number] CC: Breanna Hartmann M.D. OPERATIVE REPORT Page 1 of 1 X Rai Garcia MD X PROCEDURE OPERATIVE NOTE
== END | disposition home or self-care (01) ==
LOC: COPS 10:11
DX: K22.2 Esophageal obstruction (principal); K21.9 Gastro-esophageal reflux disease without esophagitis; Z88.2 Allergy status to sulfonamides; Z88.8 Allergy status to other drugs, medicaments and biological substances; Z79.899 Other long term (current) drug therapy; Z98.890 Other specified postprocedural states
CPT/HCPCS: 82378; 88305; 88312